=== PATIENT | female | born 1960 | race Caucasian/White ===

== ENCOUNTER → 2020-07-19 | Outpatient (CLI) | payer OTHER ==
[~2020-07-19] MED LIST: ECOTRIN81 MG PO; HYDROCODON-ACE1 EAC6 PO; LIPITOR TAB 2020 MG PO; METFORMIN HCL500 MG PO
== END ==
LOC: KOH-I 11:11
DX: Z09 Encounter for follow-up examination after completed treatment for conditions other than malignant neoplasm (principal); Z86.39 Personal history of other endocrine, nutritional and metabolic disease; E04.2 Nontoxic multinodular goiter
CPT/HCPCS: 76536

== ENCOUNTER → 2020-09-06 | Outpatient (CLI) | payer OTHER | LOC: KOH-I 08:16 | DX: M25.511 Pain in right shoulder (principal); M19.011 Primary osteoarthritis, right shoulder | CPT/HCPCS: 73030 ==

== ENCOUNTER → 2020-09-07 | Outpatient (CLI) | payer OTHER | LOC: NM 09-01 09:30 | DX: E05.90 Thyrotoxicosis, unspecified without thyrotoxic crisis or storm (principal) | CPT/HCPCS: 78012; A9516 ==

== ENCOUNTER → 2020-10-10 | Outpatient (CLI) | payer OTHER | LOC: EMI 10-05 16:15 → KOH-I 14:30 | DX: M25.511 Pain in right shoulder (principal) | CPT/HCPCS: 73221 ==

== ENCOUNTER → 2020-10-28 | Day surgery (SDC) | payer OTHER | END | disposition home or self-care (01) | LOC: OR 06:22 | DX: M75.01 Adhesive capsulitis of right shoulder (principal); E78.5 Hyperlipidemia, unspecified; E07.9 Disorder of thyroid, unspecified; F17.210 Nicotine dependence, cigarettes, uncomplicated; E11.9 Type 2 diabetes mellitus without complications; Z98.51 Tubal ligation status; Z79.84 Long term (current) use of oral hypoglycemic drugs; Z79.82 Long term (current) use of aspirin | CPT/HCPCS: 73020; 76000; 82962; J1885; J2001; J2250; J2274; J2405; J2704; J3010; J3301; J7120 ==

== ENCOUNTER → 2021-09-22 | Outpatient (CLI) | payer OTHER | LOC: KOH-I 14:45 | DX: Z03.818 Encounter for observation for suspected exposure to other biological agents ruled out (principal); J20.9 Acute bronchitis, unspecified | CPT/HCPCS: 71046 ==